=== PATIENT | female | born 1945 | race Caucasian/White ===

== ENCOUNTER 2022-03-18 13:34 | Emergency (ER) | payer MEDICARE, SELFPAY ==
--- NOTE | ~2022-03-18 | XR_ITS ---
EXAMINATION: XR abdomen obstructive series DATE: 03/18/2022 14:45 INDICATION: Vomiting. Recent colon resection. TECHNIQUE: Supine and upright views of the abdomen. FINDINGS: No prior studies for comparison. The visualized lung parenchyma is normal.. There is a nonobstructive bowel gas pattern. Gas and stool are seen throughout the colon to the level of the rectum. There is no free air. There is moderate l umbar spondylosis with dextroscoliosis. IMPRESSION: 1. No acute abdominal abnormality. Reviewed, dictated and finalized at location A.
[2022-03-18 13:50] VITALS: BP 171/61; PULSE 87; RESP 20; TEMP 36.9; O2SAT 94
[2022-03-18 14:02] VITALS: BP 171/61; PULSE 87; RESP 20; TEMP 36.9; O2SAT 94
--- NOTE | 2022-03-18 14:15 | ED.GENADULT ---
HPI - General Adult General Chief complaint: Nausea/Vomiting/Diarrhea Stated complaint: Vomiting Source: patient Mode of arrival: ambulatory Limitations: no limitations History of Present Illness HPI narrative: Patient presents for evaluation of upset stomach since yesterday. She states she has colon cancer and underwent a colon resection approximately 6 weeks ago. She has been doing well since that time. She has had normal bowel function with reported bowel frequency of twice daily. Last bowel movement was yesterday and was just small amounts of solid stool. She denies any abdominal pain per se. She reports a hunger sensation but has also exhibited nausea and vomiting. No fever, chills, urinary symptoms. She thinks she has a touch of something . Related Data Allergies Allergy/AdvReac Type Severity Reaction Status Date / Time adhesive Allergy Rash Verified 03/18/22 14:02 iohexol Allergy Hives Verified 03/18/22 14:02 [From contrast - CT, X-RAY] Review of Systems Review of Systems: CONSTITUTIONAL: Reports hunger sensation. Denies fever, chills, or sweats. EYES: Denies visual changes, redness, or discharge. ENT: Denies rhinorrhea, congestion, sore throat, or otalgia. CARDIOVASCULAR: Denies chest pain, palpitations, or edema. RESPIRATORY: Denies cough or dyspnea. GASTROINTESTINAL: Reports nausea and vomiting. Reports decreased content in bowel movements. Denies abdominal pain. GENITOURINARY: Denies dysuria or hematuria. SKIN: Denies rash or itching. MUSCULOSKELETAL: Denies back pain, joint pain, or myalgia. NEUROLOGIC: Denies headache, numbness, dizziness, or weakness. PSYCHIATRIC: Denies anxiety or depression. [facility] Past Medical History Medical History (Updated 03/18/22 @ 15:12 by KARIN Palm, ) Autoimmune disease Colon cancer Hypertension Surgical History Surgical History History of cholecystectomy History of colon resection Family History Family History Other Heart disease Social History Social History Smoking status: Former smoker Substance use: never Living arrangements: with family Gender identity (if verbalized by the patient): Female Spiritual care concerns: No Exam Narrative: GENERAL: Well-appearing, well-nourished, and in no acute distress. HEAD: Normocephalic, atraumatic. EYES: PERRLA and EOMI. ENT: Nares clear, no rhinorrhea or epistaxis. Mucous membranes moist. Oropharynx without tonsillar hypertrophy exudate or other lesions. Bilateral TMs pearly gamino nonbulging NECK: Supple. No adenopathy or masses. No carotid bruits or JVD CHEST: Clear to auscultation. No respiratory distress. No wheezes rales or rhonchi HEART: Regular rate and rhythm. No murmur heard. Normal peripheral pulses. ABDOMEN: Soft, nontender, nondistended, normal active bowel sounds. EXTREMITIES: Normal range of motion. No edema. SKIN: Warm, dry, no rash. NEURO: No focal deficits. Alert and oriented x3. PSYCH: Normal mood and affect. Course Course Emergency Course: This is a 76-year-old female who presented for evaluation of nausea and vomiting. Obstructive series negative. COVID and influenza test were negative. I did offer to send her for further evaluation an told her limitation of diagnostics available here. She did not feel necessary. I think this is reasonable as she is non-toxic appearing. She was given pepcid and zofran here and symptoms greatly improved. I did advise she call her oncologist, surgeon and PCP tomorrow, to which she was agreeable. Will dc with zofran and pepcid. She was advised to go to ER for decline in condition. Patient in agreement with plan of care. Level of Care: Express Care Visit Vital Signs Vital signs: Vital Signs Temperature 36.9 C 03/18/22 13:50 Pulse Rat
[2022-03-18] MEDS: ONDANSETRON HCL ODT 4 MG TABLET PO (14:51)
[2022-03-18] MEDS: FAMOTIDINE 20 MG TABLET PO (14:51)
== END 2022-03-18 15:15 | disposition home or self-care (01) ==
PROVIDERS: Emergency Provider Nurse Practitioner; PCP Internal Medicine
DX: R11.2 Nausea with vomiting, unspecified (principal); Z20.822 Contact with and (suspected) exposure to COVID-19; Z87.891 Personal history of nicotine dependence; I10 Essential (primary) hypertension; M35.9 Systemic involvement of connective tissue, unspecified; Z85.038 Personal history of other malignant neoplasm of large intestine
CPT/HCPCS: 74019; 87426; 87804; 99213; A9270; C9803; G0463